=== PATIENT | female | born 1930 | race African-American/Black ===

== ENCOUNTER 2017-11-23 17:36 | Emergency (ER) | payer OTHER ==
[~2017-11-23] VITALS: Ht 160 cm; Wt 52.2 kg
[2017-11-23 18:34] LABS: ABSOLUTE NEUTROPHILS 3.9 thou/uL (1.4-8.2); BASOPHILS 0.9 % (0.0-2.0); EOSINOPHILS 1.4 % (0.0-3.0); HEMATOCRIT 33.5 % (37.0-47.0); HEMOGLOBIN 10.6 gm/dL (12.0-15.0); LYMPHOCYTES 15.4 % (24.0-44.0); MCH 28.6 pg (26.0-34.0); MCHC 31.8 g/dL (28.0-37.0); MCV 90.2 fL (80.0-100.0); MONOCYTES 5.5 % (1.0-8.0); PLATELET COUNT 191 thou/uL (150-400); POLYS 76.8 % (36.0-66.0); RBC 3.72 mil/uL (4.20-5.00); RDW 17.1 % (10.5-14.5); WBC 5.1 thou/uL (4.0-11.0)
[2017-11-23 18:42] LABS: CALCIUM 10.4 mg/dL (8.5-10.1); CREATININE 2.4 mg/dL (0.6-1.0)
[2017-11-23 19:11] VITALS: BP 122/61
== END 2017-11-23 21:49 | disposition home or self-care (01) ==
LOC: ER 17:36
PROVIDERS: Physician Assistant
DX: S70.01XA Contusion of right hip, initial encounter (principal); W19.XXXA Unspecified fall, initial encounter; Y93.89 Activity, other specified; Y92.89 Other specified places as the place of occurrence of the external cause; Y99.8 Other external cause status